=== PATIENT | male | born 1985 | race Two or more races ===

== ENCOUNTER 2019-09-12 00:15 | Emergency (ER) | payer MEDICAID, OTHER ==
[~2019-09-12] VITALS: Ht 182.9 cm; Wt 92.5 kg
[2019-09-12 02:19] LABS: Basophils # (auto) 0 uL; Basophils % (auto) 0.5 % (0.0-2.0); Eosinophils # (auto) 0 uL; Eosinophils % (auto) 0.4 % (0.0-7.0); Hematocrit 47.9 % (41.0-53.0); Hemoglobin 16.4 g/dL (13.5-17.5); Lymphocytes # (auto) 1.8 uL; Lymphocytes % (auto) 26.3 % (10.0-50.0); Mean Corpuscular Hemoglobin 30.9 pg (28.0-32.0); Mean Corpuscular Hgb Conc. 34.3 g/dL (32.0-36.0); Monocytes # (auto) 0.6 uL; Neutrophils # (auto) 4.3 uL; Neutrophils % (auto) 63.8 % (37.0-80.0); Nucleated Red Blood Cells % 0.2 %; Platelet Count (auto) 198 10^3/uL (140-450); Red Blood Cells 5.32 10^6/uL (4.5-5.90); Red Cell Distribution Width 12.9 % (11.8-14.3); White Blood Cell 6.7 10^3/uL (4.4-10.8)
[2019-09-12 02:29] LABS: Urine Bacteria NONE SEEN /hpf (None Seen); Urine Blood Negative /uL (Negative); Urine Mucus FEW (None Seen); Urine Specific Gravity 1.033 (1.001-1.035); Urine WBC <1 /hpf (0 - 3)
[2019-09-12 02:37] LABS: Alanine Aminotransferase 34 U/L (16-61); Anion Gap 10 (5-15); Aspartate Aminotransferase 17 U/L (15-37); BUN/Creatinine Ratio 16.6; Blood Urea Nitrogen 24 mg/dL (7-18); Calcium 9.1 mg/dL (8.5-10.1); Carbon Dioxide 22 mmol/L (21-32); Chloride 108 mmol/L (98-107); GFR African American 72 mL/min; GFR Non-African American 60 mL/min; Glucose 97 mg/dL (74-106); Magnesium 2.2 mg/dL (1.6-2.6); Potassium 3.7 mmol/L (3.5-5.1); Salicylate < 1.7 mg/dL (2.8-20.0); Sodium 140 mmol/L (136-145)
[2019-09-12 02:39] LABS: Acetaminophen < 2.0 ug/mL (10-30)
[2019-09-12 02:42] LABS: Alkaline Phosphatase 61 U/L (45-117); Bilirubin, Total 0.6 mg/dL (0.2-1.0); Total Protein 7.7 g/dL (6.4-8.2)
[2019-09-12 02:44] LABS: Alcohol, Urine < 3.0 mg/dL (0-5); Amphetamine Screen, Urine NEGATIVE (NEGATIVE); Barbiturate Scree,Urine NEGATIVE (NEGATIVE); Benzodiazephine Screen, Urine NEGATIVE (NEGATIVE); Cannabinoid Screen, Urine NEGATIVE (NEGATIVE); Cocaine Screen, Urine NEGATIVE (NEGATIVE); Opiate Scree,Urine NEGATIVE (NEGATIVE); Phencyclidine Screen, Urine NEGATIVE (NEGATIVE)
[2019-09-12 07:00] VITALS: BP 125/83
== END 2019-09-12 09:43 | disposition home or self-care (01) ==
LOC: ER 00:19
DX: T23.212A Burn of second degree of left thumb (nail), initial encounter (principal); R07.89 Other chest pain; F41.9 Anxiety disorder, unspecified; Z88.8 Allergy status to other drugs, medicaments and biological substances; X58.XXXA Exposure to other specified factors, initial encounter; Y93.89 Activity, other specified; Y99.8 Other external cause status; Y92.89 Other specified places as the place of occurrence of the external cause
CPT/HCPCS: 36415; 71045; 80053; 80307; 80320; 80329; 81001; 83735; 84484; 85025; 93005

== ENCOUNTER 2025-04-19 21:06 | Inpatient (IN) | payer MEDICAID, OTHER ==
[~2025-04-19] VITALS: Ht 182.9 cm; Wt 109.7 kg
[2025-04-19] MEDS: SODIUM CHLORIDE 0.9% 1,000 ML IV ONE (21:45)
--- NOTE | 2025-04-19 22:24 | DVH ---
CLINICAL INDICATION: recent surgery with purulent drainage TECHNIQUE: 3 radiographic views of the right ankle were obtained. Comparison: None FINDINGS/IMPRESSION: Soft tissue swelling over the lateral malleolus.
[2025-04-19 22:40] LABS: Hematocrit 47.6 % (41.0-53.0); Hemoglobin 16.7 g/dL (13.5-17.5); Mean Corpuscular Hemoglobin 32.1 pg (28.0-32.0); Mean Corpuscular Volume 91.1 fL (80.0-100.0); Nucleated Red Blood Cells % 0.1 %
[2025-04-19 22:49] LABS: Chloride 105 mmol/L (98-107); Potassium 3.7 mmol/L (3.5-5.1); Sodium 138 mmol/L (136-145)
[2025-04-19 22:50] LABS: Anion Gap 10 (5-15); Calcium 9.2 mg/dL (8.7-10.4); Carbon Dioxide 23 mmol/L (20-31)
[2025-04-19 22:55] LABS: Glucose 109 mg/dL (74-106)
--- NOTE | 2025-04-19 23:18 | ED.PDOC ---
History of Present Illness HPI Comments 40 y/o M present with right ankle pain, redness, and swelling with wound discharge. Patient endorses on 3-4x day history of symptoms following recent right foot and ankle surgery. Patient reports having a fever, yesterday, which has since subsided. Denial of any further associated symptoms. Chief Complaint: Wound Check Time Seen by MD: 21:45 Primary Care Provider: TRACI Reviewed Notes: Nurses Notes, Medications, Allergies Allergies: Coded Allergies: Benzonatate (Verified Allergy, Unknown, 09/12/19) Caffeine (Verified Allergy, Unknown, 09/12/19) Information Source: Patient Mode of Arrival: Ambulatory Severity: Moderate Timing: Days Duration: Since onset Prehospital treatment: None Past Medical History PAST MEDICAL HISTORY: Denies Surgical History: Denies all surgeries Family History Family History: Reviewed,noncontributory to illness Social History Smoker: Non-Smoker Alcohol: Occasionally Drugs: Denies Drug Use Lives In: Home All Other Systems: Reviewed and Negative (Comprehensive systems review obtained and negative except for what is stated in the HPI.) Physical Exam General Appearance: No Apparent Distress, Normal HEENT: Normal ENT Inspection, Pharynx Normal, TMs Normal Neck: Full Range of Motion, Non-Tender, Normal, Normal Inspection Respiratory: Chest Non-Tender, Lungs Clear, No Accessory Muscle Use, No Respiratory Distress, Normal Breath Sounds Cardiovascular: No Edema, No JVD, No Murmur, No Gallop, Normal Peripheral Pulses, Regular Rate/Rhythm Breast Exam: Deferred Gastrointestinal: No Organomegaly, Non Tender, No Pulsatile Mass, Normal Bowel Sounds, Soft Genitalia: Deferred Pelvic: Deferred Rectal: Deferred Extremities: No calf tenderness, Normal capillary refill, Normal range of motion, Swelling (right ankle), Tender (right ankle) Musculoskeletal : Apperance: Normal Neurologic: Alert, 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 Was a procedure done?: No Differential Dx Considerations may include: postop complication, cellulitis, dermatitis, sepsis, among others X-Ray, Labs, Meds, VS Vital Signs Date Time Temp Pulse Resp B/P (MAP) Pulse Ox O2 Delivery O2 Flow Rate FiO2 04/19/25 21:08 98.4 94 16 134/77 95 98.4 Lab Test 04/19/25 22:15 Range/Units White Blood Count 7.1 4.4-10.8 10^3/uL Red Blood Count 5.23 4.5-5.90 10^6/uL Hemoglobin 16.7 13.5-17.5 g/dL Hematocrit 47.6 41.0-53.0 % Mean Corpuscular Volume 91.1 80.0-100.0 fL Mean Corpuscular Hemoglobin 32.1 H 28.0-32.0 pg Mean Corpuscular Hemoglobin Concent 35.2 32.0-36.0 g/dL Red Cell Distribution Width 13.1 11.8-14.3 % Platelet Count 196 140-450 10^3/uL Mean Platelet Volume 8.6 6.9-10.8 fL Neutrophils (%) (Auto) 52.4 37.0-80.0 % Lymphocytes (%) (Auto) 32.2 10.0-50.0 % Monocytes (%) (Auto) 14.1 H 0.0-12.0 % Eosinophils (%) (Auto) 1.0 0.0-7.0 % Basophils (%) (Auto) 0.3 0.0-2.0 % Neutrophils # (Auto) 3.7 1.6-8.6 10 ^3/uL Lymphocytes # (Auto) 2.3 0.4-5.4 10 ^3/uL Monocytes # (Auto) 1.0 0-1.3 10 ^3/uL Eosinophils # (Auto) 0.1 0-0.8 10 ^3/uL Basophils # (Auto) 0 0-0.2 10 ^3/uL Nucleated Red Blood Cells 0.1 % Sodium Level 138 136-145 mmol/L Potassium Level 3.7 3.5-5.1 mmol/L Chloride Level 105 98-107 mmol/L Carbon Dioxide Level 23 20-31 mmol/L Anion Gap 10 5-15 Blood Urea Nitrogen 11 9-23 mg/dL Creatinine 1.00 0.700-1.30 mg/dL Glomerular Filtration Rate Calc 98 >90 mL/min BUN/Creatinine Ratio 11.0 10.0-20.0 Serum Glucose 109 H 74-106 mg/dL Lactic Acid Level 1.5 0.4-2.0 mmol/L Calcium Level 9.2 8.7-10.4 mg/dL [facility] [id number] [place] [id number] Ph: [phone] DIAGNOSTIC IMAGING Diagnostic Imaging Report : [id number] Signed PATIENT: ELVIE CLARKE ACCT: [id number] UNIT: [id number] : 1985 LOC: ER ROOM / BED: / AGE / SEX: 40 / M ADM STATUS: REG ER SERVICE 43 ORDERING PHYSICIAN: DOMINGO CARTER MD PROCEDURE(s): RANKL - R ANKLE 3 VIEW REASON: recent surgery with purulent drainage ORDER NUMBER(s): [id number], ACCESSION NUMBER(s): [id number] CLINICAL INDICATION: recent surgery with purulent drainage TECHNIQUE: 3 radiographic views of the right ankle were obtained. Comparison: None FINDINGS/IMPRESSION: Soft tissue swelling over the lateral malleolus. ATED BY: CHAYA LEON Jr., DO DICTATED DATE/TIME: 04/19/252221 SIGNED BY: CHAYA LEON Jr., SIGNED DATE/TIME: 04/19/252221 CC: Time of 1ST Reevaluation: 22:15 Reevaluation 1ST: Unchanged Patient Education/Counseling: Diagnosis, Treatment Family Education/Counseling: No Family Present SEPSIS Sepsis Screen Date sepsis recognized/suspect: Apr 19, 2025 Time Sepsis recognized/suspect: 2107 Recent Procedure: No On Antibiotic Therapy: No Respiratory Rate >20: No Heart Rate >90: No Temp<36 C (96.8 F) or >38.3 C: No SBP <90 or MAP <65 mmHG: No New Acute Mental Status Change: No Is the patient on CPAP, BIPAP,: No Physician Orders R Ankle 3 View (04/19/25 21:44) Blood Culture (04/19/25 21:44) Vital Signs Date Time Temp Pulse Resp B/P (MAP) Pulse Ox O2 Delivery O2 Flow Rate FiO2 04/19/25 21:08 98.4 94 16 134/77 95 98.4 Laboratory Tests Test 04/19/25 22:15 Lactic Acid Level 1.5 mmol/L (0.4-2.0) White Blood Count 7.1 10^3/uL (4.4-10.8) Departure 1 Departure Time of Disposition: 00:07 (Patient with concern for infection of the right ankle s/p surgery. Will cover with antibiotics and admit patient for expert consultation. ) Impression: Primary Impression: Superficial injury of ankle with infection Qualified Codes: S90.911A - Unspecified superficial injury of right ankle, initial encounter; L08.9 - Local infection of the skin and subcutaneous tissue, unspecified Additional Impression: Acute right ankle pain Disposition: ADMITTED INPATIENT Admit to: Med Surg Condition: Serious Critical Care Note Critical Care Time?: No Stability Stability form required: No Heart Score Heart Score: Heart Score Response (Comments) Value History N/A 0 EKG N/A 0 Age N/A 0 Risk Factors N/A 0 Troponin N/A 0 Total 0 I personally scribed for DOMINGO CARTER MD ([email or web address]) on 04/19/25 at 23:18. Electronically submitted by Rebel Clarke ([email or web address]). DOMINGO CARTER MD Apr 19, 2025 23:18
[2025-04-19 23:29] LABS: BUN/Creatinine Ratio 11.0 (10.0-20.0); Blood Urea Nitrogen 11 mg/dL (9-23)
[2025-04-20] MEDS: VANCOMYCIN 1GM/250ML KIT 250 ML IV ONE ×2 (04:19→18:41)
[2025-04-20] MEDS: ONDANSETRON HCL 4 MG/2 ML VIAL IV ONE (04:22)
[2025-04-20] MEDS: MORPHINE SULFATE 4 MG/ML SYR/VIAL IV ONE (04:23)
[2025-04-20] MEDS ORDERED: ONDANSETRON HCL 4 MG/2 ML VIAL IV PRN (08:30)
[2025-04-20] MEDS ORDERED: MORPHINE SULFATE INJ 2 MG/ml SYRG IV PRN (08:30)
[2025-04-20] MEDS ORDERED: DOCUSATE SOD 100 MG CAP PO PRN (08:30)
[2025-04-20] MEDS ORDERED: VANCOMYCIN PER PHARMACY 0 MG IV SCH (08:30)
[2025-04-20] MEDS ORDERED: PROP1TAB53 PO (08:33)
[2025-04-20] MEDS ORDERED: PROPRANOLOL HCL 20 MG TAB PO PRN (08:45)
--- NOTE | 2025-04-20 08:55 | DVHHP2 ---
History of Present Illness Reason for Visit: right ankle pain and swelling History of Present Illness Corbin Clarke is a 40-year-old male with past medical history of anxiety, who came to the hospital for right leg swelling, redness, drainage, and pain. Patient recently had an injury at work. He got his right foot caught in a drain that caused ligament and muscle damage. Workman's comp has been handling the injury. He had surgery completed on 03/30/2025. States he has been home and doing well until about 4-5 days ago. He noticed his leg was swelling and becoming red. The swelling and redness was continuing over the the next couple of days. He symptoms worsened with pain and drainage prompting him to come to the hospital. Psych: Anxiety Past Surgical History: Other (right ankle surgery 03/30/2025) Smoke: No ALCOHOL: none Drugs: None Lives: with Family Domestic Violence: Neg Review of Systems Constitutional: No: Fever, Chills, Sweats, Weakness, Malaise, Other Eyes: No: Pain, Vision change, Conjunctivae inflammation, Eyelid inflammation, Other, Redness ENT: No: Ear pain, Ear discharge, Nose pain, Nose discharge, Nose congestion, Mouth pain, Mouth swelling, Throat pain, Throat swelling, Other Respiratory: No: Cough, Dry, Shortness of breath, SOB with excertion, Wheezing, Hemoptysis, Pleuritic Pain, Sputum, Wheezing, Other Cardiovascular: No: Chest Pain, Palpitations, Orthopnea, Paroxysmal Noc. Dyspnea, Edema, Lt Headedness, Other Gastrointestinal: No: Nausea, Vomiting, Abdominal Pain, Diarrhea, Constipation, Melena, Hematochezia, Other Genitourinary: No Dysuria, No Frequency, No Incontinence, No Hematuria, No Retention, No Other Musculoskeletal: leg pain (right ankle); No: other, neck pain, shoulder pain, arm pain, back pain, hand pain, foot pain Skin: Other (right leg swelling, redness, drainage, and pain); No: Rash, Lesions, Jaundice, Bruising Neurological: No: Weakness, Numbness, Incoordination, Change in speech, Confusion, Seizures, Other Allergies: Coded Allergies: Benzonatate (Verified Allergy, Unknown, 09/12/19) Caffeine (Verified Allergy, Unknown, 09/12/19) Medications Current Medications Medications Dose Ordered Sig/Jack Route Start Time Stop Time Status Last Admin Dose Admin Acetaminophen/ Hydrocodone Bitart 1 tab Q4HP PRN PO 04/20/25 08:30 UNV Ondansetron HCl 4 mg Q4HP PRN IV 04/20/25 08:30 UNV Docusate Sodium 100 mg BIDPRN PRN PO 04/20/25 08:30 UNV Acetaminophen 650 mg Q6HP PRN PO 04/20/25 08:30 UNV Morphine Sulfate 2 mg Q4HPRN PRN IV 04/20/25 08:30 UNV Vancomycin HCl 0 ml @ 0 mls/hr UD IV 04/20/25 08:30 UNV Exam Vital Signs Vital Signs Date Time Temp Pulse Resp B/P (MAP) Pulse Ox O2 Delivery O2 Flow Rate FiO2 04/20/25 04:38 97.8 71 16 113/87 (96) 94 97.8 General Appearance: Alert, Oriented X3, Cooperative, moderate distress HEENT: Atraumatic, PERRLA Respiratory: Clear to auscultation, Normal air movement Cardiovascular: Regular rate, Normal S1, Normal S2, No murmurs Abdominal: Normal bowel sounds, Soft, No tenderness, No hepatospenomegaly Extremities: No clubbing, No cyanosis, Other (right leg swelling, redness, drainage, and pain) Skin: No rashes, No breakdown, No significant lesion Neuro: Normal gait, Normal speech, Strength at 5/5 X4 ext, Normal tone, Other (ambulating with a walking boot) Psych/Mental Status: Mental status NL, Mood NL Labs/Xrays Labs Test 04/19/25 22:15 Range/Units White Blood Count 7.1 4.4-10.8 10^3/uL Red Blood Count 5.23 4.5-5.90 10^6/uL Hemoglobin 16.7 13.5-17.5 g/dL Hematocrit 47.6 41.0-53.0 % Mean Corpuscular Volume 91.1 80.0-100.0 fL Mean Corpuscular Hemoglobin 32.1 H 28.0-32.0 pg Mean Corpuscular Hemoglobin Concent 35.2 32.0-36.0 g/dL Red Cell Distribution Width 13.1 11.8-14.3 % Platelet Count 196 140-450 10^3/uL Mean Platelet Volume 8.6 6.9-10.8 fL Neutrophils (%) (Auto) 52.4 37.0-80.0 % Lymphocytes (%) (Auto) 32.2 10.0-50.0 % Monocytes (%) (Auto) 14.1 H 0.0-12.0 % Eosinophils (%) (Auto) 1.0 0.0-7.0 % Basophils (%) (Auto) 0.3 0.0-2.0 % Neutrophils # (Auto) 3.7 1.6-8.6 10 ^3/uL Lymphocytes # (Auto) 2.3 0.4-5.4 10 ^3/uL Monocytes # (Auto) 1.0 0-1.3 10 ^3/uL Eosinophils # (Auto) 0.1 0-0.8 10 ^3/uL Basophils # (Auto) 0 0-0.2 10 ^3/uL Nucleated Red Blood Cells 0.1 % Sodium Level 138 136-145 mmol/L Potassium Level 3.7 3.5-5.1 mmol/L Chloride Level 105 98-107 mmol/L Carbon Dioxide Level 23 20-31 mmol/L Anion Gap 10 5-15 Blood Urea Nitrogen 11 9-23 mg/dL Creatinine 1.00 0.700-1.30 mg/dL Glomerular Filtration Rate Calc 98 >90 mL/min BUN/Creatinine Ratio 11.0 10.0-20.0 Serum Glucose 109 H 74-106 mg/dL Lactic Acid Level 1.5 0.4-2.0 mmol/L Calcium Level 9.2 8.7-10.4 mg/dL TECHNIQUE: 3 radiographic views of the right ankle were obtained. Comparison: None FINDINGS/IMPRESSION: Soft tissue swelling over the lateral malleolus. SEPSIS Sepsis Screen Date sepsis recognized/suspect: Apr 19, 2025 Time Sepsis recognized/suspect: 2107 Recent Procedure: No On Antibiotic Therapy: No Respiratory Rate >20: No Heart Rate >90: No Temp<36 C (96.8 F) or >38.3 C: No SBP <90 or MAP <65 mmHG: No New Acute Mental Status Change: No Is the patient on CPAP, BIPAP,: No Physician Orders Admit (04/20/25 08:27) Code Status (04/20/25 08:27) Hydrocodone-Acet 5/325mg Tab ([place] /32 (04/20/25 08:30) Ondansetron Hcl (Zofran) (04/20/25 08:30) Docusate Sodium Capsule (Colace Capsule) (04/20/25 08:30) Complete Blood Count (04/21/25 04:00) Comprehensive Metabolic Panel (04/21/25 04:00) Condition: Serious (04/20/25 08:27) Acetaminophen Tablet (Tylenol Tablet) (04/20/25 08:30) Morphine Sulfate Injection (04/20/25 08:30) Vancomycin (04/20/25 08:30) Cefepime 2gm Extended Infusion (04/20/25 10:00) Vital Signs Date Time Temp Pulse Resp B/P (MAP) Pulse Ox O2 Delivery O2 Flow Rate FiO2 04/20/25 04:38 97.8 71 16 113/87 (96) 94 97.8 04/20/25 04:23 71 16 118/77 Laboratory Tests Test 04/19/25 22:15 Lactic Acid Level 1.5 mmol/L (0.4-2.0) White Blood Count 7.1 10^3/uL (4.4-10.8) Medications Medications Dose Ordered Sig/Jack Route Start Time Stop Time Status Last Admin Dose Admin Morphine Sulfate 4 mg ONCE ONCE IV 04/19/25 21:45 04/19/25 21:46 DC 04/20/25 04:23 4 MG Ondansetron HCl 4 mg ONCE ONCE IV 04/19/25 21:45 04/19/25 21:46 DC 04/20/25 04:22 4 MG Sodium Chloride 1,000 ml @ 1,000 mls/hr Q1H ONCE IV 04/19/25 21:45 04/19/25 22:44 DC 04/19/25 21:45 1,000 MLS/HR Vancomycin HCl 250 ml @ 250 mls/hr ONCE ONCE IV 04/19/25 21:45 04/19/25 22:44 DC 04/20/25 04:19 250 MLS/HR Assessment/Plan Assessment/Plan Assessment: Acute right ankle pain, Infection of surgical site, right ankle, Anxiety, Plan: Admit to Med-Surg, IV antibiotics, IV hydration, Pain management, Elevate right leg Home medications reconciled, Plan discussed with: Patient My Orders Orders - REYMUNDO MCCONNELL [employer] Procedure Category Date Status Time Admit ADMIT 04/20/25 Transmitted 08:27 Code Status CODE 04/20/25 Transmitted 08:27 Hydrocodone-Acet PHA 04/20/25 Transmitted 5/325mg Tab ([place] 08:30 Ondansetron Hcl PHA 04/20/25 Transmitted (Zofran) 08:30 Docusate Sodium PHA 04/20/25 Transmitted Capsule (Colace 08:30 Complete Blood Count LAB 04/21/25 Verified 04:00 Comprehensive LAB 04/21/25 Verified Metabolic Panel 04:00 Condition: Serious MAURY 04/20/25 In Process 08:27 Acetaminophen Tablet PHA 04/20/25 Transmitted (Tylenol Tablet) 08:30 Morphine Sulfate PHA 04/20/25 Transmitted Injection 08:30 Vancomycin PHA 04/20/25 Transmitted 08:30 Cefepime 2gm Extended PHA 04/20/25 Transmitted Infusion 10:00 Date of Service: Apr 20, 2025 Billing Provider: REYMUNDO MCCONNELL Common Visit Codes: [id number] INP/OBS CARE (MOD) REYMUNDO MCCONNELL Apr 20, 2025 08:55
[2025-04-20] MEDS: SODIUM CHLORIDE 0.9% 1,000 ML IV ONE ×2 (09:00→16:10)
[2025-04-20] MEDS: CEFEPIME 2GM/50ML NS 50 ML IV SCH (15:35)
[2025-04-20] MEDS: VANCOMYCIN 1.25GM/250ML 250 ML IV SCH (19:17)
[2025-04-21] VITALS (9 sets, daily range): BP systolic 97–119; BP diastolic 56–81; PULSE 69–87; RESP 16–20; TEMP 97.1–98.1; O2SAT 93–100
[2025-04-21] MEDS: HYDROcodone-ACET 5/325MG TAB PO PRN (01:16)
[2025-04-21 06:51] LABS: Hematocrit 41.0 % (41.0-53.0); Hemoglobin 14.6 g/dL (13.5-17.5); Mean Corpuscular Hemoglobin 32.2 pg (28.0-32.0); Mean Corpuscular Volume 90.8 fL (80.0-100.0); Nucleated Red Blood Cells % 0.1 %
[2025-04-21 07:02] LABS: Alanine Aminotransferase 36 U/L (7-40); Albumin 3.6 g/dL (3.2-4.8); Alkaline Phosphatase 82 U/L (46-116); Anion Gap 8 (5-15); BUN/Creatinine Ratio 12.4 (10.0-20.0); Blood Urea Nitrogen 11 mg/dL (9-23); Carbon Dioxide 25 mmol/L (20-31); Potassium 3.6 mmol/L (3.5-5.1); Sodium 141 mmol/L (136-145); Total Protein 6.2 g/dL (5.7-8.2)
[2025-04-21 07:12] LABS: Bilirubin, Total 0.3 mg/dL (0.2-1.0); Calcium 8.7 mg/dL (8.7-10.4); Chloride 108 mmol/L (98-107); Glucose 127 mg/dL (74-106)
--- NOTE | 2025-04-21 08:54 | DVHPN2 ---
Subjective Patient continues to report having swelling and pain to right foot and ankle Reviewed: Care Plan, H&P, Labs, Medications, Previous Orders Changes from previous H/P or p: No Changes General: Per HPI Eyes: No Pain, No Vision change, No Conjunctivae inflammation, No Eyelid inflammation, No Other, No Redness ENT: No Ear pain, No Ear discharge, No Nose pain, No Nose discharge, No Nose congestion, No Mouth pain, No Mouth swelling, No Throat pain, No Throat swelling, No Other Cardiovascular: No Chest Pain, No Palpitations, No Orthopnea, No Paroxysmal Noc. Dyspnea, No Edema, No Lt Headedness, No Other Respiratory: No Cough, No Dry, No Shortness of breath, No SOB with excertion, No Wheezing, No Hemoptysis, No Pleuritic Pain, No Sputum, No Other Gastrointestinal: No Nausea, No Vomiting, No Abdominal Pain, No Diarrhea, No Constipation, No Melena, No Hematochezia, No Other Genitourinary: No Dysuria, No Frequency, No Incontinence, No Hematuria, No Retention, No Other Musculoskeletal: No other, No neck pain, No shoulder pain, No arm pain, No back pain, No hand pain; leg pain (right ankle); No foot pain Skin: No Rash, No Lesions, No Jaundice, No Bruising; Other (right leg swelling, redness, drainage, and pain) Objective Vitals Vital Signs Date Time Temp Pulse Resp B/P (MAP) Pulse Ox O2 Delivery O2 Flow Rate FiO2 04/21/25 05:00 98.1 76 17 97/56 (70) 93 98.1 04/21/25 00:32 Room Air* 0 21 Intake/Output Intake and Output 04/21/25 07:00 Intake Total 150 ml Balance 150 ml Intake Oral 100 ml IV Total 50 ml # Voids 2 General Appearance: Alert, Oriented X3, No acute distress HEENT: Atraumatic, PERRLA Lungs: Clear to auscultation, Normal air movement Cardiovascular: Normal S1, Normal S2 Abdomen: Normal bowel sounds, Soft, No tenderness Musculoskeletal: Normal sensory function, Normal motor function Neuro: Normal gait, Normal speech Skin: Dry, Intact Psych/Mental Status: Mental status NL, Mood NL Medications Current Medications Medications Dose Ordered Sig/Jack Route Start Time Stop Time Status Last Admin Dose Admin Acetaminophen/ Hydrocodone Bitart 1 tab Q4HP PRN PO 04/20/25 08:30 04/21/25 01:16 1 TAB Ondansetron HCl 4 mg Q4HP PRN IV 04/20/25 08:30 Docusate Sodium 100 mg BIDPRN PRN PO 04/20/25 08:30 Acetaminophen 650 mg Q6HP PRN PO 04/20/25 08:30 Morphine Sulfate 2 mg Q4HPRN PRN IV 04/20/25 08:30 Vancomycin HCl 0 ml @ 0 mls/hr UD IV 04/20/25 08:30 Cefepime HCl 50 ml @ 12.5 mls/hr Q12HR IV 04/20/25 10:00 04/21/25 01:16 12.5 MLS/HR Propranolol HCl 20 mg DAILYP PRN PO 04/20/25 08:45 Vancomycin HCl 250 ml @ 200 mls/hr Q10H IV 04/20/25 19:00 04/20/25 19:27 200 MLS/HR Laboratory Results Laboratory Tests 04/21/25 06:14 Chemistry Test 04/21/25 06:14 Albumin 3.6 g/dL (3.2-4.8) Calcium Level 8.7 mg/dL (8.7-10.4) Total Protein 6.2 g/dL (5.7-8.2) LFT Test 04/21/25 06:14 Alanine Aminotransferase (ALT) 36 U/L (7-40) Alkaline Phosphatase 82 U/L (46-116) Aspartate Amino Transferase (AST) 22 U/L (13-40) Total Bilirubin 0.3 mg/dL (0.2-1.0) Microbiology Microbiology Date/Time Source Procedure Growth Status 04/19/25 22:15 Blood Blood Culture - Preliminary NO GROWTH AFTER 24 HOURS OF INCUBATION. Resulted Labs and/or images reviewed: Labs reviewed by me, Image(s) reviewed by me Assessment/Plan Assessment/Plan Impression: -status post right ankle surgery -obesity -rule out postop infection Plan: -WBC normal. ESR, CRP pending -continue antibiotic therapy with cefepime and vancomycin -pain management -swelling noted on three-view foot x-ray. CT scan rule out possible abscess. -daily dressing changes. Total time spent with patient discussing and formulating plan of care: 35 minutes. This medical document was created using an electronic medical record system with Dragon computerized dictation system. Although this document has been carefully reviewed, there may still be some phonetic and typographical errors. These areas are purely typographical due to imperfections of the software programs, and do not reflect any compromise in the patient's medical care. Plan discussed with: Patient, Other (RN) My Orders Orders - PATRICIA MONTANEZ NP Procedure Category Date Status Time Erythrocyte LAB 04/21/25 In Process Sedimentation Rate 08:18 Basic Metabolic Panel LAB 04/22/25 Verified 04:00 Complete Blood Count LAB 04/22/25 Verified 04:00 Ct R Ankle Wo Contrast CT 04/21/25 Logged 08:48 Change Dressing Daily MAURY 04/21/25 In Process 08:48 Date of Service: Apr 21, 2025 Billing Provider: PATRICIA MONTANEZ NP Common Visit Codes: [id number] INP/OBS CARE(HIGH) PATRICIA MONTANEZ NP Apr 21, 2025 08:54
--- NOTE | 2025-04-21 12:35 | DVH ---
CLINICAL INFORMATION: 40 years old, Male; Rule out post op infection, abscess. TECHNIQUE: Axial CT images of the right ankle were obtained without IV contrast. Coronal and sagittal reformatted images were obtained, reviewed, and stored. 3D reconstructed images were created at an [employer] workstation with concurrent physician supervision. All CT scans at this medical facility a re performed using dose modulation techniques as appropriate to a performed exam including the follow ing: Automated exposure control was utilized; adjustment of the MA and/or KV according to patient siz e; and use of iterative reconstruction technique. CTDIvol = 7.89 mGy DLP = 236.14 mGy-cm COMPARISON: XY R ANKLE 3 VIEW on DOS: 04/19/25 FINDINGS: No evidence of acute fracture. 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 There is moderate diffuse soft tiss ue swelling around the ankle, most prominent laterally. There is skin thickening and irregularity at the lateral aspect of the ankle, most prominent inferior to the lateral malleolus. Limited evaluatio n for abscess on noncontrast enhanced CT. No organized fluid collection identified on limited noncont rast enhanced CT. There is also moderate subcutaneous edema and ill-defined fluid along the dorsal la teral aspect of the midfoot and hindfoot. IMPRESSION: 1. Soft tissue swelling, most prominent laterally, where there is skin thickening and irregularity of the lateral aspect of the ankle, may be due to cellulitis in the appropriate clinical setting. 2. Limited evaluation for abscess on noncontrast enhanced CT. No organized fluid collection identifie d given the limitations of the examination. 3. 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 4. Additional findings as described above.
[2025-04-21] MEDS: ALPRAZolam 0.25 MG TAB PO PRN (16:28)
[2025-04-21] MEDS: ACETAMINOPHEN 325 MG TAB PO PRN (21:37)
[2025-04-22 01:00] VITALS: BP 135/90; PULSE 71; RESP 16; TEMP 97.7; O2SAT 97
[2025-04-22 05:00] VITALS: BP 115/82; PULSE 64; RESP 18; TEMP 97.8; O2SAT 95
[2025-04-22 05:33] LABS: Hematocrit 43.9 % (41.0-53.0); Hemoglobin 15.3 g/dL (13.5-17.5); Mean Corpuscular Hemoglobin 31.8 pg (28.0-32.0); Mean Corpuscular Volume 90.9 fL (80.0-100.0); Nucleated Red Blood Cells % 0.0 %
[2025-04-22 05:55] LABS: Anion Gap 7 (5-15); Carbon Dioxide 27 mmol/L (20-31); Chloride 105 mmol/L (98-107); Potassium 3.7 mmol/L (3.5-5.1); Sodium 139 mmol/L (136-145)
[2025-04-22 06:01] LABS: BUN/Creatinine Ratio 7.9 (10.0-20.0)
[2025-04-22 06:04] LABS: Blood Urea Nitrogen 7 mg/dL (9-23); Glucose 116 mg/dL (74-106)
[2025-04-22 06:15] LABS: Calcium 9.0 mg/dL (8.7-10.4)
[2025-04-22 07:38] VITALS: RESP 17
[2025-04-22] MEDS ORDERED: AUG875T PO (08:32)
--- NOTE | 2025-04-22 08:35 | DVHDS2 ---
Discharge Summary Date of Admission Apr 20, 2025 at 08:27 Date of Discharge: Apr 22, 2025 Admitting Diagnosis Right ankle surgical site infection Labs/Diagnostic Data: Laboratory Results Test 04/22/25 04:56 04/22/25 00:13 04/21/25 06:14 04/19/25 22:15 White Blood Count 4.8 10^3/uL (4.4-10.8) Red Blood Count 4.83 10^6/uL (4.5-5.90) Hemoglobin 15.3 g/dL (13.5-17.5) Hematocrit 43.9 % (41.0-53.0) Mean Corpuscular Volume 90.9 fL (80.0-100.0) Mean Corpuscular Hemoglobin 31.8 pg (28.0-32.0) Mean Corpuscular Hemoglobin Concent 34.9 g/dL (32.0-36.0) Red Cell Distribution Width 12.8 % (11.8-14.3) Platelet Count 171 10^3/uL (140-450) Mean Platelet Volume 8.2 fL (6.9-10.8) Neutrophils (%) (Auto) 40.9 % (37.0-80.0) Lymphocytes (%) (Auto) 44.8 % (10.0-50.0) Monocytes (%) (Auto) 12.2 % (0.0-12.0) Eosinophils (%) (Auto) 1.9 % (0.0-7.0) Basophils (%) (Auto) 0.2 % (0.0-2.0) Neutrophils # (Auto) 2.0 10 ^3/uL (1.6-8.6) Lymphocytes # (Auto) 2.1 10 ^3/uL (0.4-5.4) Monocytes # (Auto) 0.6 10 ^3/uL (0-1.3) Eosinophils # (Auto) 0.1 10 ^3/uL (0-0.8) Basophils # (Auto) 0 10 ^3/uL (0-0.2) Nucleated Red Blood Cells 0.0 % Sodium Level 139 mmol/L (136-145) Potassium Level 3.7 mmol/L (3.5-5.1) Chloride Level 105 mmol/L (98-107) Carbon Dioxide Level 27 mmol/L (20-31) Anion Gap 7 (5-15) Blood Urea Nitrogen 7 mg/dL (9-23) Creatinine 0.89 mg/dL (0.700-1.30) Glomerular Filtration Rate Calc 112 mL/min (>90) BUN/Creatinine Ratio 7.9 (10.0-20.0) Serum Glucose 116 mg/dL (74-106) Calcium Level 9.0 mg/dL (8.7-10.4) Vancomycin Level Trough 6.1 ug/mL (5-10) Erythrocyte Sedimentation Rate 6 mm/hr (0-20) Total Bilirubin 0.3 mg/dL (0.2-1.0) Aspartate Amino Transferase (AST) 22 U/L (13-40) Alanine Aminotransferase (ALT) 36 U/L (7-40) Alkaline Phosphatase 82 U/L (46-116) C-Reactive Protein High Sensitivity 0.79 mg/dL (<1.0) Total Protein 6.2 g/dL (5.7-8.2) Albumin 3.6 g/dL (3.2-4.8) Lactic Acid Level 1.5 mmol/L (0.4-2.0) Other Laboratory Tests 04/22/25 04:56 Brief Hx & Hospital Course: History of Present Illness Corbin Clarke is a 40-year-old male with past medical history of anxiety, who came to the hospital for right leg swelling, redness, drainage, and pain. Patient recently had an injury at work. He got his right foot caught in a drain that caused ligament and muscle damage. [employer] has been handling the injury. He had surgery completed on 03/30/2025. States he has been home and doing well until about 4-5 days ago. He noticed his leg was swelling and becoming red. The swelling and redness was continuing over the the next couple of days. He symptoms worsened with pain and drainage prompting him to come to the hospital. Course of hospitalization: Patient had three-view x-ray of ankle as well as CT scan of the ankle which did not reveal any abscess. Noted cellulitis. Drainage did decrease while in the hospital. White blood cell count remained normal. Patient was treated with empiric antibiotic therapy including cefepime and vancomycin. All cultures has been negative. Patient has remained afebrile. Patient will be discharged home and is instructed to follow up with his scheduled surgical follow up this evening in [place]. Patient was agreeable with discharge plan. He will be continued on antibiotic therapy with Augmentin 875 mg p.o. twice a day for additional five days. Physical examination General: Alert and Oriented x3. No acute distress. Well-nourished. Eyes: EOMI. Anicteric. HENT: Moist mucous membranes. Lungs: Clear to auscultation bilaterally. No accessory muscle use. Cardiovascular: Regular rate and rhythm. No murmur. No JVD. Abdomen: Soft, non-tender and non-distended. No palpable masses. Extremities: No edema. Non-tender. Right ankle dressing dry and intact Skin: No rashes or lesions. Warm. Neurologic: No focal neurological deficits. CN II-XII grossly intact, but not individually tested. Psychiatric: Cooperative. Appropriate mood and affect. Total time spent with patient discussing and formulating plan of care: 35 minutes. This medical document was created using an electronic medical record system with [employer] dictation system. Although this document has been carefully reviewed, there may still be some phonetic and typographical errors. These areas are purely typographical due to imperfections of the software programs, and do not reflect any compromise in the patient's medical care. Condition at Discharge: Fair Final Diagnosis/Problems List Right lower extremity cellulitis -status post right ankle surgery -obesity -rule out postop infection Discharge Disposition: Home Discharge Instruct/Medications Diet: Regular Activity: No Restrictions, As Tolerated Follow Up/Referral: Follow up with surgeon at scheduled appointment this evening Medications: Augmentin 875 mg p.o. b.i.d. x5 days Scheduled Amoxicillin & Pot Clavulanate (Augmentin Tablet), 875 MG PO BID Scheduled PRN Propranolol HCl (Propranolol Hydrochloride), 1 TAB PO DAILYP PRN, (Reported) 36 Discharge Statement: "Patient was advised to return to the ER or call 911 if any headaches, dizziness, shortness of breath, chest pain, abdominal pain, bleeding, fevers, or worsening of medical condition. Patient was counseled about treatment plan, medications, possible side effects, patientverbalized understanding. All questions were answered to the best of my ability. This discharge took greater then 30 minutes in planning, reviewing documentation, counseling the patient, and discussing with other team members." ASSESSMENT ASSESSMENT Assessment Right lower extremity cellulitis Date of Service: Apr 22, 2025 Billing Provider: PATRICIA MONTANEZ NP Common Visit Codes: 43603-IXE/OBS DISCH DAY >30min PATRICIA MONTANEZ NP Apr 22, 2025 08:35
[2025-04-22 09:00] VITALS: BP 102/69; PULSE 66; RESP 16; TEMP 97.8; O2SAT 96
[2025-04-22 09:03] VITALS: BP 102/69; PULSE 66; RESP 16; TEMP 97.8; O2SAT 96
== END 2025-04-22 09:40 | disposition home or self-care (01) | DRG 603 ==
LOC: ER 21:06 → OVERFLOW 04-20 08:27 → CENTRAL 04-21 18:57
PROVIDERS: ADMIT Nurse Practitioner Acute Care; ATTEND Nurse Practitioner Acute Care
DX: L03.115 Cellulitis of right lower limb (principal); T81.41XA Infection following a procedure, superficial incisional surgical site, initial encounter; E11.69 Type 2 diabetes mellitus with other specified complication; E66.9 Obesity, unspecified; Z68.31 Body mass index [BMI] 31.0-31.9, adult; F41.9 Anxiety disorder, unspecified; Z98.890 Other specified postprocedural states; Z88.8 Allergy status to other drugs, medicaments and biological substances; Y83.8 Other surgical procedures as the cause of abnormal reaction of the patient, or of later complication, without mention of misadventure at the time of the procedure; Y92.89 Other specified places as the place of occurrence of the external cause
CPT/HCPCS: 36415; 73610; 73700; 80048; 80053; 80202; 83605; 85025; 85652; 86141; 87040; 96361; 96365; 96375; G0378; J0692; J2405